=== PATIENT | male | born 1950 | race African-American/Black ===

== ENCOUNTER 2020-09-20 08:22 | Outpatient (CLI) | payer MEDICARE, OTHER ==
--- NOTE | 2020-09-20 09:32 | ULT ---
ABDOMINAL AORTIC ULTRASOUND: HISTORY: Screening study. TECHNIQUE: Tran scale, color flow, Doppler imaging, and spectral waveform analysis of the aorta. FINDINGS: Limited evaluation due to bowel gas. Proximal aorta measures 2.1 cm in the sagittal plane, mid aorta measures 2 cm in the sagittal plane, distal aorta measures 1.8 cm in the sagittal plane. Bifurcation and iliac arteries are not assessed due to bowel gas. IMPRESSION: No evidence of aneurysm in the visualized aorta. POS: AH
== END 2020-09-20 08:23 | disposition home or self-care (01) ==
LOC: BICULT 08:22
PROVIDERS: ATTEND Internal Medicine
DX: Z13.6 Encounter for screening for cardiovascular disorders (principal)
CPT/HCPCS: 76775